=== PATIENT | male | born 1995 | race African-American/Black ===

== ENCOUNTER 2016-12-03 09:20 | Emergency (ER) | payer SELFPAY ==
[~2016-12-03] VITALS: Ht 167.6 cm; Wt 56.0 kg
[~2016-12-03 09:20] MED LIST: DILA100C PO; PHEN100C PO; TOPI200 PO
[2016-12-03] MEDS ORDERED: SODIUM CHLOR 0.9% 1000 ML INJ 1,000 ML IV ONE (09:21)
[2016-12-03 09:23] VITALS: BP 106/70; PULSE 93; RESP 15; TEMP 97.7; O2SAT 96
--- NOTE | 2016-12-03 09:29 | PD ---
HPI Chief Complaint: seizure Time Seen by Provider: 09:21 Travel History International Travel<30 days: No Contact w/Intl Traveler<30days: No History of Present Illness HPI This is a 21-year-old man who presents to the emergency department after witnessed seizure. Patient had a history of seizure for 2 years. Has a seizure every couple months. Multiple ED visits for seizures. He otherwise has been feeling generally well and healthy. Endorses occasional marijuana use. Last seizure was in August. EMS reports patient was postictal on their arrival. He reports family states 4 minutes of grand mal seizure-like activity. Patient's only complaint now some headache. He is not really able to tell me what medications he takes. EMS reports they were changing him off of Topamax onto Dilantin extended release 300 daily. History Past Medical History Narrative Medical Seizures Marijuana use Social History Alcohol Use: No Tobacco Use: Yes Allergies-Medications (Allergen,Severity, Reaction): Coded Allergies: No Known Allergies (Verified , 12/03/16) Reported Meds & Prescriptions Reported Meds & Active Scripts Active Dilantin (Phenytoin Extended) 100 Mg Cap 300 Mg PO DAILY 30 Days Topamax (Topiramate) 200 Mg Tab 200 Mg PO BID Review of Systems Except as stated in HPI: all other systems reviewed are Neg Physical Exam Narrative GENERAL: Well-appearing 18-year-old man, no acute distress. SKIN: Warm and dry. HEAD: Atraumatic. Normocephalic. EYES: Pupils equal and round. No scleral icterus. No injection or drainage. ENT: No nasal bleeding or discharge. Mucous membranes pink and moist. NECK: Trachea midline. No JVD. CARDIOVASCULAR: Regular rate and rhythm. No murmur appreciated. RESPIRATORY: No accessory muscle use. Clear to auscultation. Breath sounds equal bilaterally. GASTROINTESTINAL: Abdomen soft, non-tender, nondistended. Hepatic and splenic margins not palpable. MUSCULOSKELETAL: No obvious deformities. No clubbing. No cyanosis. No edema. NEUROLOGICAL: Awake and alert. No obvious cranial nerve deficits. Motor grossly within normal limits. Normal speech. PSYCHIATRIC: Appropriate mood and affect; insight and judgment normal. Data Data Last Documented VS Vital Signs Date Time Temp Pulse Resp B/P Pulse Ox O2 Delivery O2 Flow Rate FiO2 12/03/16 09:23 97.7 93 15 106/70 96 Orders Complete Blood Count With Diff (12/03/16 09:21) Phenytoin (Dilantin) (12/03/16 09:21) Blood Glucose (12/03/16 09:21) Ecg Monitoring (12/03/16:21) Iv Access Insert/Monitor (12/03/16 09:21) Oximetry (12/03/16 09:21) Comprehensive Metabolic Panel (12/03/16 09:21) Sodium Chlor 0.9% 1000 Ml Inj (Ns 1000 M (12/03/16 09:21) Sodium Chloride 0.9% Flush (Ns Flush) (12/03/16 09:30) Lorazepam Inj (Ativan Inj) (12/03/16 09:30) Labs Laboratory Tests Test 12/03/16 09:35 White Blood Count 8.3 TH/MM3 Red Blood Count 4.91 MIL/MM3 Hemoglobin 15.4 GM/DL Hematocrit 46.2 % Mean Corpuscular Volume 94.0 FL Mean Corpuscular Hemoglobin 31.4 PG Mean Corpuscular Hemoglobin 33.4 % Concent Red Cell Distribution Width 13.2 % Platelet Count 251 TH/MM3 Mean Platelet Volume 9.6 FL Neutrophils (%) (Auto) 44.1 % Lymphocytes (%) (Auto) 45.5 % Monocytes (%) (Auto) 7.1 % Eosinophils (%) (Auto) 2.0 % Basophils (%) (Auto) 1.3 % Neutrophils # (Auto) 3.7 TH/MM3 Lymphocytes # (Auto) 3.8 TH/MM3 Monocytes # (Auto) 0.6 TH/MM3 Eosinophils # (Auto) 0.2 TH/MM3 Basophils # (Auto) 0.1 TH/MM3 CBC Comment DIFF FINAL Differential Comment Sodium Level 136 MEQ/L Potassium Level 4.5 MEQ/L Chloride Level 105 MEQ/L Carbon Dioxide Level 12.2 MEQ/L Anion Gap 19 MEQ/L Blood Urea Nitrogen 15 MG/DL Creatinine 1.54 MG/DL Estimat Glomerular Filtration 68 ML/MIN Rate Random Glucose 171 MG/DL Calcium Level 8.5 MG/DL Total Bilirubin 0.3 MG/DL Aspartate Amino Transf 34 U/L (AST/SGOT) Alanine Aminotransferase 50 U/L (ALT/SGPT) Alkaline Phosphatase 93 U/L Total Protein 8.0 GM/DL Albumin 4.2 GM/DL Phenytoin (Dilantin) Level 1.0 MCG/ML MDM Medical Decision Making Medical Screen Exam Complete: Yes Emergency Medical Condition: Yes Interpretation(s) LABS: CBC is unremarkable. CMP remarkable for mildly elevated creatinine. Bicarbonate 12.2, anion gap 19 consistent with seizure. Dilantin 1.0 Differential Diagnosis Seizure, drug use, medication noncompliance, infection, electrolyte abnormality , other Narrative Course Medical decision making 18-year-old male with a history of seizures, on medication for seizures. Previous workups reviewed. Previous neuroimaging review. Previous neurology consultations reviewed. Recent phenytoin levels have been subtherapeutic. Will check Ventolin level. Will give 1 of lorazepam, likely load with fosphenytoin. Encourage compliance with medications, abstinence from marijuana use. Continue to avoid driving. Outpatient follow-up with neurology. Diagnosis Primary Impression: Seizure disorder Additional Impression: Subtherapeutic serum dilantin level Additional Instructions: Take medications as prescribed. Avoid marijuana. Do not drive or operate heavy machinery until cleared by neurology. You should avoid being in any situation where if you had a seizure it could be dangerous such as swimming, looking on a ladder, or other such activities. Return to the emergency department for any seizures lasting more than 5 minutes , [id number] seizures, or seizures with prolonged confusion afterwards. Med/Other Pt SpecificInfo: No Change to Meds Disposition: 01 DISCHARGE HOME Condition: Stable Shekhar Kraus MD Dec 03, 2016 09:29
[2016-12-03] MEDS ORDERED: LORazepam 2 MG/ML VIAL IVS ONE (09:30)
[2016-12-03] MEDS ORDERED: SODIUM CHLORIDE 0.9% FLUSH 5 ML FLUSH IVF PRN (09:30)
[2016-12-03 09:48] LABS: AUTOMATED NEUTROPHIL # 3.7 TH/MM3 (1.8-7.7); BASOPHIL # 0.1 TH/MM3 (0-0.2); BASOPHIL % 1.3 % (0.0-2.0); EOSINOPHIL # 0.2 TH/MM3 (0-0.4); HEMATOCRIT 46.2 % (39.0-51.0); HEMO FLAGS DIFF FINAL; LYMPH % 45.5 % (9.0-44.0); LYMPHOCYTE # 3.8 TH/MM3 (1.0-4.8); MEAN CORPUSCULAR HEMOGLOBIN 31.4 PG (27.0-34.0); MEAN CORPUSCULAR HGB CONC 33.4 % (32.0-36.0); MONO % 7.1 % (0.0-8.0); NEUT % 44.1 % (16.0-70.0); PLATELET COUNT 251 TH/MM3 (150-450); RED BLOOD COUNT 4.91 MIL/MM3 (4.50-5.90); RED CELL DISTRIBUTION WIDTH 13.2 % (11.6-17.2); WHITE BLOOD COUNT 8.3 TH/MM3 (4.0-11.0)
[2016-12-03 10:15] LABS: ALKALINE PHOSPHATASE 93 U/L (45-117); ALT (GPT) 50 U/L (12-78); ANION GAP 19 MEQ/L (5-15); AST (GOT) 34 U/L (15-37); BICARBONATE 12.2 MEQ/L (21.0-32.0); BLOOD UREA NITROGEN 15 MG/DL (7-18); CHLORIDE 105 MEQ/L (98-107); GLOMERULAR FILTRATION RATE 68 ML/MIN (>89); POTASSIUM 4.5 MEQ/L (3.5-5.1); SODIUM (NA) 136 MEQ/L (136-145); TOTAL BILIRUBIN ADULT 0.3 MG/DL (0.2-1.0)
[2016-12-03] MEDS ORDERED: FOSPHENYTOIN INJ 1,000 MGPE in SODIUM CHLORIDE 0.9% INJ 50 ML IV ONE (10:30)
[2016-12-03] MEDS ORDERED: ONDANSETRON HCL 4 MG/2 ML VIAL IV PUSH ONE (11:00)
== END 2016-12-03 11:36 | disposition home or self-care (01) ==
LOC: NEPA 09:20
DX: R56.9 Unspecified convulsions (principal); R89.2 Abnormal level of other drugs, medicaments and biological substances in specimens from other organs, systems and tissues; Z72.0 Tobacco use; F12.90 Cannabis use, unspecified, uncomplicated
CPT/HCPCS: 80053; 80185; 85025; 96374; 96375; 99284; J2060; J2405; J7030; Q2009

== ENCOUNTER 2016-12-26 09:05 | Emergency (ER) | payer SELFPAY ==
[~2016-12-26] VITALS: Ht 167.6 cm; Wt 60.0 kg
[~2016-12-26 09:05] MED LIST changes: -PHEN100C PO
--- NOTE | 2016-12-26 09:14 | PD ---
HPI Chief Complaint: seizure Time Seen by Provider: 09:14 Travel History International Travel<30 days: No Contact w/Intl Traveler<30days: No Traveled to known affect area: No History of Present Illness HPI 21-year-old male was brought in by EMS for generalized tonic-clonic seizure. Patient does not remember anything. He thinks his mother called 911. He has been here multiple times with these symptoms. In the past his Dilantin levels have been nonexistent. However, every time he comes in he says that he has been taking his Dilantin medications like he has been prescribed. Today he told me that he has been taking it 3 times a day and got upset when I asked couple times if he was sure he was taking it. However, later on he told the nurse that he did not fill his prescription. No history of tongue bite, lip bite, incontinence or head injury. He says he is feeling fine currently. PFSH Past Medical History Narrative Medical List of his past medical, surgical, social and family history was reviewed from the nursing note. Asthma: No Blood Disorders: No Heart Rhythm Problems: No Cancer: No Cardiovascular Problems: No Chemotherapy: No Chest Pain: No Congestive Heart Failure: No COPD: No Diabetes: No Diminished Hearing: No Genitourinary: No Immune Disorder: No Musculoskeletal: Yes (rt knee ) Neurologic: Yes (Seizures) Psychiatric: No Reproductive: No Respiratory: No Immunizations Current: Yes Radiation Therapy: No Seizures: Yes Sleep Apnea: No Thyroid Disease: No Past Surgical History Other Surgery: Yes (laser surgery rt knee) Social History Alcohol Use: No Tobacco Use: Yes Substance Use: Yes (marijuana) Allergies-Medications (Allergen,Severity, Reaction): Coded Allergies: No Known Allergies (Verified , 12/03/16) Comments No known drug allergies. Reported Meds & Prescriptions Reported Meds & Active Scripts Active Dilantin (Phenytoin Extended) 100 Mg Cap 300 Mg PO DAILY 30 Days Topamax (Topiramate) 200 Mg Tab 200 Mg PO BID Narrative Medication List of his home medications reviewed from the nursing note. Review of Systems Except as stated in HPI: all other systems reviewed are Neg Physical Exam Narrative GENERAL: Awake, alert, no obvious distress SKIN: Focused skin assessment warm/dry. HEAD: Atraumatic. Normocephalic. EYES: Pupils equal and round. No scleral icterus. No injection or drainage. ENT: No nasal bleeding or discharge. Mucous membranes pink and moist. NECK: Trachea midline. No JVD. CARDIOVASCULAR: Regular rate and rhythm. No murmur appreciated. RESPIRATORY: No accessory muscle use. Clear to auscultation. Breath sounds equal bilaterally. GASTROINTESTINAL: Abdomen soft, non-tender, nondistended. Hepatic and splenic margins not palpable. MUSCULOSKELETAL: No obvious deformities. No clubbing. No cyanosis. No edema. NEUROLOGICAL: Awake and alert. No obvious cranial nerve deficits. Motor grossly within normal limits. Normal speech. PSYCHIATRIC: Appropriate mood and affect; insight and judgment normal. Data Data Last Documented VS Vital Signs Date Time Temp Pulse Resp B/P Pulse Ox O2 Delivery O2 Flow Rate FiO2 12/26/16 09:20 97.0 88 20 108/55 99 12/26/16 09:19 Room Air Orders Phenytoin (Dilantin) (12/26/16 09:17) Drug Screen, Random Urine (12/26/16 09:26) Phenytoin (Dilantin) (12/26/16 10:15) Electrocardiogram (12/26/16 09:16) Labs Laboratory Tests Test 12/26/16 12/26/16 09:20 09:30 Phenytoin (Dilantin) Level LESS THAN 0.4 MCG/ML Urine Opiates Screen NEG Urine Barbiturates Screen NEG Urine Amphetamines Screen NEG Urine Benzodiazepines Screen NEG Urine Cocaine Screen NEG Urine Cannabinoids Screen POS MDM Medical Decision Making Medical Screen Exam Complete: Yes Emergency Medical Condition: Yes Medical Record Reviewed: Yes Differential Diagnosis Seizure disorder, seizure due to noncompliance to medications, breakthrough seizure Narrative Course 10:17 AM as I suspect that his Dilantin level today again is less than 0.4. I find it very hard to believe that he has been compliant with the medications. In my opinion this patient never takes his medications probably and gets the seizures. I will reiterate to him the importance of taking medications. He told me that he does not drive and does not do any marijuana. He had an inpatient consultation done by Dr. Grace in July last year when he was admitted. And Dr. Grace's consultation he had written that he would like to follow up with this patient in his office once he was discharged. Patient told me he has no follow-up and no neurologist. I will give him a follow-up with Dr. Grace. Procedures EKG Prior to Arrival: No Diagnosis Primary Impression: noncompliance to seizure medications Additional Impressions: Seizure disorder Subtherapeutic serum dilantin level Referrals: Dakota Grace PhD 1 week Additional Instructions: Please take your Dilantin like you have been prescribed to. Follow-up with the neurologist whose name and number been given to you. Not taking seizure medication could be extremely dangerous especially if you have a seizure under fatal circumstances. Med/Other Pt SpecificInfo: No Change to Meds Disposition: 01 DISCHARGE HOME Condition: Stable Woodrow Reich MD Dec 26, 2016 09:14
[2016-12-26 09:19] VITALS: BP 108/55; PULSE 90; RESP 20; TEMP 97; O2SAT 93
[2016-12-26 09:20] VITALS: BP 108/55; PULSE 88; RESP 20; TEMP 97; O2SAT 99
[2016-12-26 10:03] LABS: AMPHETAMINE, URINE NEG (NEG); BARBITURATES, URINE NEG (NEG); COCAINE, URINE NEG (NEG)
[2016-12-26] MEDS ORDERED: PHENYTOIN SODIUM 100 MG CAP PO ONE (10:15)
--- NOTE | 2016-12-26 15:17 | EKG ---
Date Performed: 12/26/2016 Time Performed: 09:16:54 PTAGE: 21 years EKG: Sinus arrhythmia Early repolarization. Since previous tracing, no significant change noted ABNORMAL RHYTHM ECG PREVIOUS TRACING : 10/14/2015 06.20 DOCTOR: Judson Glover Interpretating Date/Time 12/26/2016 15:15:22
== END 2016-12-26 10:41 | disposition home or self-care (01) ==
LOC: NEPA 09:05
DX: R56.9 Unspecified convulsions (principal); Z91.19 Patient's noncompliance with other medical treatment and regimen; Z72.0 Tobacco use
CPT/HCPCS: 80185; 80307; 93005; 99284

== ENCOUNTER 2017-09-25 11:25 | Emergency (ER) | payer SELFPAY ==
[~2017-09-25] VITALS: Ht 167.6 cm; Wt 59.1 kg
[2017-09-25] MEDS ORDERED: LEVE500 PO (11:34)
[2017-09-25 11:36] VITALS: BP 126/60; TEMP 98; O2SAT 98
[2017-09-25 11:40] VITALS: BP 126/60; PULSE 80; RESP 14; TEMP 98; O2SAT 99
--- NOTE | 2017-09-25 11:40 | PD ---
HPI Chief Complaint: seizure Time Seen by Provider: 11:35 Travel History International Travel<30 days: No Contact w/Intl Traveler<30days: No History of Present Illness HPI 22-year-old male with known history of seizures presents to the emergency department via EMS after having a witnessed seizure at home the last approximate 5 minutes. The patient is on Keppra, did not take his Keppra last night or this morning. He states his last seizure was approximately 5 months ago. He was previously on Dilantin, but has been recently switched to Keppra. Patient denies any pain at this time. He has no other medical problems and takes no other prescribed medications. He is unsure of his dosage of Keppra at this time. He denies any illicit drug use. Exacerbating factor is noncompliance of medication. Alleviating factor is taking medication. Moderate severity. No associated symptoms. PFSH Past Medical History Asthma: No Blood Disorders: No Heart Rhythm Problems: No Cancer: No Cardiovascular Problems: No Chemotherapy: No Chest Pain: No Congestive Heart Failure: No COPD: No Diabetes: No Diminished Hearing: No Genitourinary: No Immune Disorder: No Musculoskeletal: Yes (rt knee ) Neurologic: Yes (Seizures) Psychiatric: No Reproductive: No Respiratory: No Immunizations Current: Yes Radiation Therapy: No Seizures: Yes Sleep Apnea: No Thyroid Disease: No Past Surgical History Other Surgery: Yes (laser surgery rt knee) Social History Alcohol Use: No Tobacco Use: Yes Substance Use: Yes (marijuana) Allergies-Medications (Allergen,Severity, Reaction): Coded Allergies: No Known Allergies (Verified Adverse Reaction, Unknown, 09/25/17) Reported Meds & Prescriptions Reported Meds & Active Scripts Active Reported Keppra (Levetiracetam) 500 Mg Tab 500 Mg PO BID Review of Systems Except as stated in HPI: all other systems reviewed are Neg Physical Exam Narrative GENERAL: Well-nourished, well-developed male patient, afebrile. SKIN: Focused skin assessment warm/dry. HEAD: Normocephalic. Atraumatic. ENT: Mucosa pink and moist. No erythema or exudates. No uvular edema. No uvular , palatal, or tonsillar deviation. Airway patent. Nasal turbinates appear normal without nasal blood, purulent drainage or septal hematoma. Bilateral tympanic membranes are clear without erythema or perforation. EYES: No scleral icterus. No injection or drainage. NECK: Supple, trachea midline. No JVD or lymphadenopathy. CARDIOVASCULAR: Regular rate and rhythm without murmurs, gallops, or rubs. RESPIRATORY: Breath sounds equal bilaterally. No accessory muscle use. Lungs sounds are clear to auscultation. GASTROINTESTINAL: Abdomen soft, non-tender, nondistended. MUSCULOSKELETAL: No cyanosis, or edema. BACK: Nontender without obvious deformity. No CVA tenderness. Data Data Last Documented VS Vital Signs Date Time Temp Pulse Resp B/P (MAP) Pulse Ox O2 Delivery O2 Flow Rate FiO2 09/25/17 11:40 98.0 80 14 126/60 (82) 99 Room Air Orders Orders Complete Blood Count With Diff (09/25/17 11:36) Basic Metabolic Panel (Bmp) (09/25/17 11:36) Blood Glucose (09/25/17 11:36) Ecg Monitoring (09/25/17 11:36) Iv Access Insert/Monitor (09/25/17 11:36) Oximetry (09/25/17 11:36) Sodium Chloride 0.9% Flush (Ns Flush) (09/25/17 11:45) Ondansetron Inj (Zofran Inj) (09/25/17 11:45) Lorazepam Inj (Ativan Inj) (09/25/17 13:30) Levetiracetam Inj (Keppra Inj) (09/25/17 13:30) Lorazepam Inj (Ativan Inj) (09/25/17 13:28) Ondansetron Inj (Zofran Inj) (09/25/17 14:30) Labs Laboratory Tests Test 09/25/17 11:50 09/25/17 14:15 Blood Urea Nitrogen 11 MG/DL Creatinine 1.17 MG/DL Random Glucose 125 MG/DL Calcium Level 8.9 MG/DL Sodium Level 138 MEQ/L Potassium Level 4.5 MEQ/L Chloride Level 106 MEQ/L Carbon Dioxide Level 15.7 MEQ/L Anion Gap 16 MEQ/L Estimat Glomerular Filtration Rate 93 ML/MIN White Blood Count 9.5 TH/MM3 Red Blood Count 4.93 MIL/MM3 Hemoglobin 15.6 GM/DL Hematocrit 45.8 % Mean Corpuscular Volume 92.9 FL Mean Corpuscular Hemoglobin 31.6 PG Mean Corpuscular Hemoglobin Concent 34.0 % Red Cell Distribution Width 12.9 % Platelet Count 293 TH/MM3 Mean Platelet Volume 7.8 FL Neutrophils (%) (Auto) 75.2 % Lymphocytes (%) (Auto) 18.5 % Monocytes (%) (Auto) 5.3 % Eosinophils (%) (Auto) 0.2 % Basophils (%) (Auto) 0.8 % Neutrophils # (Auto) 7.1 TH/MM3 Lymphocytes # (Auto) 1.8 TH/MM3 Monocytes # (Auto) 0.5 TH/MM3 Eosinophils # (Auto) 0.0 TH/MM3 Basophils # (Auto) 0.1 TH/MM3 CBC Comment DIFF FINAL Differential Comment MDM Medical Decision Making Medical Screen Exam Complete: Yes Emergency Medical Condition: Yes Medical Record Reviewed: Yes Differential Diagnosis Recurrent seizure versus noncompliance of medication versus breakthrough seizure versus electrolyte abnormality Narrative Course 22 year old male presents to the emergency department via EMS after having a witnessed seizure home. He has known history of seizures in did not take his Keppra last night or this morning. IV access established. CBC, BMP are ordered and pending. Patient states he is nauseated. He is given Zofran 4 mg IV. He is unsure of his dosage of Keppra at this time. Awaiting family. CBC shows no acute abnormality. BMP shows no acute abnormality. His girlfriend is at bedside. She still does not know his dose of Keppra. He states he has to refills on his medication. While in the ED, he does have another seizure that lasted approximately 30 seconds. He is given Ativan 2 mg IV and Keppra 500 mg IV. Upon reassessment, patient is asking to go home. He is back to baseline. He is instructed to continue taking his Keppra and not miss any doses. He is to follow-up with neurologist. He verbalizes agreement. The patient was discharged in stable condition with instructions, including return instructions and follow up instructions. Diagnosis Primary Impression: Seizure disorder Referrals: Neurologist Primary Care Physician Patient Instructions: General Instructions, Recurrent Seizures in Adults (ED) Additional Instructions: Take Keppra as directed. Do not miss any doses. Follow-up with your neurologist and primary care physician. Return to the emergency department for any acute worsening of symptoms. Med/Other Pt SpecificInfo: No Change to Meds Disposition: 01 DISCHARGE HOME Condition: Stable Shira Wolff Sep 25, 2017 11:40
[2017-09-25] MEDS ORDERED: SODIUM CHLORIDE 0.9% FLUSH 10 ML FLUSH IVF PRN (11:45)
[2017-09-25] MEDS ORDERED: ONDANSETRON HCL 4 MG/2 ML VIAL IV PUSH ONE ×2 (11:45→14:30)
[2017-09-25 12:51] LABS: BICARBONATE 15.7 MEQ/L (21.0-32.0); CALCIUM 8.9 MG/DL (8.5-10.1); CREATININE 1.17 MG/DL (0.60-1.30)
[2017-09-25] MEDS ORDERED: LORazepam 2 MG/ML VIAL ONE (13:28)
[2017-09-25] MEDS ORDERED: levETIRAcetam INJ 500 MG in SODIUM CHLORIDE 0.9% INJ 100 ML IV ONE (13:30)
[2017-09-25] MEDS ORDERED: LORazepam 2 MG/ML VIAL IV PUSH ONE (13:30)
[2017-09-25 14:47] LABS: AUTOMATED NEUTROPHIL # 7.1 TH/MM3 (1.8-7.7); BASOPHIL # 0.1 TH/MM3 (0-0.2); BASOPHIL % 0.8 % (0.0-2.0); EOSINOPHIL % 0.2 % (0.0-4.0); HEMATOCRIT 45.8 % (39.0-51.0); HEMOGLOBIN 15.6 GM/DL (13.0-17.0); LYMPH % 18.5 % (9.0-44.0); LYMPHOCYTE # 1.8 TH/MM3 (1.0-4.8); MEAN CELL VOLUME 92.9 FL (80.0-100.0); MEAN CORPUSCULAR HEMOGLOBIN 31.6 PG (27.0-34.0); MEAN PLATELET VOLUME 7.8 FL (7.0-11.0); MONO % 5.3 % (0.0-8.0); MONOCYTE # 0.5 TH/MM3 (0-0.9); NEUT % 75.2 % (16.0-70.0); PLATELET COUNT 293 TH/MM3 (150-450); RED BLOOD COUNT 4.93 MIL/MM3 (4.50-5.90); RED CELL DISTRIBUTION WIDTH 12.9 % (11.6-17.2); WHITE BLOOD COUNT 9.5 TH/MM3 (4.0-11.0)
== END 2017-09-25 16:17 | disposition home or self-care (01) ==
LOC: NEPE 11:25
DX: G40.909 Epilepsy, unspecified, not intractable, without status epilepticus (principal); F12.90 Cannabis use, unspecified, uncomplicated; Z72.0 Tobacco use; Z91.14 Patient's other noncompliance with medication regimen
CPT/HCPCS: 80048; 85025; 96374; 96375; 96376; 99282; J1953; J2060; J2405